=== PATIENT | male | born 1965 | race Caucasian/White ===

== ENCOUNTER → 2019-04-11 | Day surgery (SDC) | payer OTHER, MEDICAID ==
[~2019-04-11] MED LIST: CALC200T3 PO; HYDROmorphone 2 MG/ML VIAL IV PRN; IV RINGERS,LACTATED 1000ML 1,000 ML IV SCH; METH-38 PO; MORPHINE SULFATE 2 MG/ML VIAL. IV PRN; OLAN10TA9 PO; ONDANSETRON PF 4 MG/2 ML VIAL. IV PRN; OXCA300T19 PO; PANT40TA77 PO; PROCHLORPERAZINE 10 MG/2 ML VIAL. IV PRN; PROPOFOL 20 ML IV ONE; fentaNYL PF VIAL 100 MCG/2 ML VIAL IV PRN
[2019-04-11 17:46] VITALS: BP 116/80
--- NOTE | 2019-04-13 14:07 | PATHOLOGY ---
[facility] Accession Number: [id number] . 01 Material submitted: . esophagus - ESOPHAGEAL BIOPSY . 01 Clinical history: . GERD . 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 See comment. (JPM:nubia; 04/13/2019) QMS 04/13/2019 0903 Local . 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 There is no dysplasia or evidence of malignancy. A segment of gastric mucosa is also present. (JPM:nubia; 04/13/2019) . 02 Electronically signed: . Ajit Tai MD, Pathologist NPI- [id number] . 01 Gross description: . Received in formalin labeled "Brambila, Andrews, esophageal BX, rule out Erazo's," are multiple segments of lamas soft tissue measuring 0.6 x 0.4 x 0.1 cm in aggregate dimensions. The specimen is filtered and entirely submitted in cassette A1. (TSD; 04/12/2019) TOB/TOB 04/12/2019 1835 Local . 02 Pathologist provided ICD-10: K20.9, K22.70 . 02 CPT . 709374 Specimen Comment: A courtesy copy of this report has been sent to Specimen Comment: [phone], . Specimen Comment: Report sent to / DR ARRIAZA Performed at: 01 [facility] [address] [place] [address] [address], [place] [id number] MD Joon Stokes MD Phone: [phone] Performed at: [address] [id number] MD Ajit Tai MD Phone: [phone]
== END ==
LOC: ENDOS 16:15
PROVIDERS: ATTEND Internal Medicine Gastroenterology
DX: K22.2 Esophageal obstruction (principal); K22.70 Barrett's esophagus without dysplasia; K21.9 Gastro-esophageal reflux disease without esophagitis; F15.90 Other stimulant use, unspecified, uncomplicated; Z88.8 Allergy status to other drugs, medicaments and biological substances; Z87.891 Personal history of nicotine dependence
CPT/HCPCS: 43239; 43450; 88305; J2704